=== PATIENT | male | born 1985 | race Caucasian/White ===

== ENCOUNTER 2023-02-08 05:20 | Day surgery (SDC) | payer MEDICAID ==
[2023-01-29 14:25] LABS: BASOPHILS # (AUTO) 0.1 X10'3 (0-0.2); BASOPHILS % (AUTO) 0.9 % (0-1); EOSINOPHILS # (AUTO) 0.3 X10'3 (0-0.9); EOSINOPHILS % (AUTO) 4.2 % (0-6); LYMPHOCYTES # (AUTO) 2.8 X10'3 (1.1-4.8); LYMPHOCYTES % (AUTO) 36.5 % (21-51); MEAN CORPUSCULAR HEMOGLOBIN 30.6 PG (27.0-31.0); MEAN CORPUSCULAR HGB CONC 34.3 g/dL (33.0-36.5); MEAN CORPUSCULAR VOLUME 89.3 FL (78-98); MEAN PLATELET VOLUME 7.5 FL (7.4-10.4); MONOCYTES # (AUTO) 0.8 X10'3 (0-0.9); MONOCYTES % (AUTO) 10.1 % (2-12); NEUTROPHILS # (AUTO) 3.7 X10'3 (1.8-7.7); NEUTROPHILS % (AUTO) 48.3 % (42-75); PRE OP HEMATOCRIT 46.5 % (42.0-52.0); PRE OP HEMOGLOBIN 15.9 g/dL (14.0-17.9); PRE OP PLATELET COUNT 235 X10'3 (140-440); PRE OP WHITE BLOOD COUNT 7.6 10'3 (4.8-10.8); RED CELL DISTRIBUTION WIDTH 13.2 % (11.5-14.5)
[2023-01-29 14:51] LABS: ALBUMIN 4.1 G/DL (3.4-5.0); ALBUMIN/GLOBULIN RATIO 1.1 (1.1-1.5); ALKALINE PHOSPHATASE 61 IU/L (46-116); BLOOD UREA NITROGEN 22 MG/DL (7-18); BUN/CREATININE RATIO 16.2 (10.0-20.0); CALCIUM 9.8 MG/DL (8.5-10.1); CHLORIDE 101 MMOL/L (99-107); CREATININE 1.36 MG/DL (0.60-1.10); PRE OP ANION GAP 9 (8-16); PRE OP AST 33 U/L (10-37); PRE OP BILIRUB, TOTAL 0.4 MG/DL (0.0-1.0); PRE OP POTASSIUM 4.2 MMOL/L (3.4-5.1); PRE OP SODIUM 136 MMOL/L (135-145); TOTAL PROTEIN 7.8 G/DL (6.4-8.2); eGFR 60 ML/MIN
[2023-01-29 14:53] LABS: PRE OP GLUCOSE 281 MG/DL (70-104)
[2023-01-29 16:44] LABS: HEMOGLOBIN A1C 7.5 % (4.5-6.2)
[2023-01-30 07:18] LABS: PRE OP ALT 81 U/L (30-65)
[2023-02-08] VITALS (8 sets, daily range): BP systolic 118–160; BP diastolic 69–92; PULSE 76–93; RESP 14–16; TEMP 98.4; O2SAT 95–98
[~2023-02-08] VITALS: Ht 175.3 cm; Wt 124.8 kg
[~2023-02-08 05:20] MED LIST: ACET-1025 PO; ASPI-1264 PO; IBUP-1984 PO; LYSI500T11 PO; METF-438 PO; MULT-1085 PO; OMEP20TA23 PO; SIMV-42 PO; ringers solution, lacted 1,000 ML IV SCH
[2023-02-08] MEDS ORDERED: ceFAZolin inj. 3,000 MG in normal saline 100ml IV soln 100 ML IV ONE (05:30)
[2023-02-08] MEDS ORDERED: famotidine 20mg tablet PO ONE (05:30)
[2023-02-08] MEDS ORDERED: BUPIVAcaine/PF 2.5 mg/ml (0.25%) 30ml vial IJ ONE (07:00)
[2023-02-08] MEDS ORDERED: cloNIDine hcl/PF 100mcg/ml inj ONE (07:19)
[2023-02-08] MEDS ORDERED: BUPIVAcaine/PF 2.5 mg/ml (0.25%) 30ml vial ONE (07:20)
[2023-02-08] MEDS ORDERED: fentaNYL/PF 50MCG/1 ML 2ML syringe ONE ×2 (07:22→07:54)
[2023-02-08] MEDS ORDERED: midazolam 1 mg/ML 2ml injection ONE (07:25)
[2023-02-08] MEDS ORDERED: sevoflurane 250ml liquid IH ONE (07:35)
[2023-02-08] MEDS ORDERED: morphine 2 MG/ML inj. syringe IV PRN (08:00)
[2023-02-08] MEDS ORDERED: morphine 4 MG/ML inj SYRINge IV PRN (08:00)
[2023-02-08] MEDS ORDERED: meperidine/PF 25mg/ml syringe IV PRN ×3 (08:00)
[2023-02-08] MEDS ORDERED: proCHLORperazine 10 MG/2 ml inj IV PRN (08:00)
[2023-02-08] MEDS ORDERED: ondansetron/PF 4mg/2ml inj IV PRN (08:00)
[2023-02-08] MEDS ORDERED: ringers solution, lacted 1,000 ML IV SCH (08:00)
[2023-02-08] MEDS ORDERED: insulin regular, human U-100 3ml vial - multi-dose ONE (08:22)
[2023-02-08] MEDS ORDERED: LIDOcaine 1%/PF 5ML 10 MG/ML VIAL ONE (08:42)
[2023-02-08] MEDS ORDERED: dexamethasone sod phosphate 4mg/ml inj. ONE (08:42)
[2023-02-08] MEDS ORDERED: ondansetron/PF 4mg/2ml inj ONE (08:42)
[2023-02-08] MEDS ORDERED: ROPIVAcaine 0.5% (5mg/ml) 30ml vial ONE (08:42)
[2023-02-08] MEDS ORDERED: propofol inj 20 ML IV ONE (08:42)
[2023-02-08] MEDS ORDERED: acetaminophen 1,000mg/100ml IV 100 ML IV ONE (08:43)
--- NOTE | 2023-02-08 09:00 | NUR ---
Received from OR via , accompanied by Anesthesiologist and report given by Anesthesiolgist. PATIENT A&OX4, DENIES PAIN, V/S WNL, SCD ON , PIV 20G RUE, SPLINT DRESSING TO LUE IN SLING WITH COLD POWDER PACK.
[2023-02-08] MEDS ORDERED: HYDROcodone/acetaminophen 10/325mg tab PO PRN (09:20)
--- NOTE | 2023-02-08 10:00 | NUR ---
A&OX4, DENIES PAIN, V/S WNL, SCD OFF , PIV 20G RUE D/C, SPLINT DRESSING TO LUE IN SLING WITH COLD POWDER PACK.DC HOME: ALL DISCHARGE CRITERIA HAS BEEN MET. VSS, PAIN AT TOLERABLE LEVEL. ABLE TO SAFELY AMBULATE AND TRANSFER SELF. IV TAKEN OUT WITHOUT ANY COMPLICATIONS. ALL DISCHARGE INSTRUCTIONS COVERED WITH PATIENT AND ALL QUESTIONS ANSWERED. PATIENT TAKEN OUT VIA WHEELCHAIR TO PERSONAL VEHICLE WHERE FAMILY/FRIEND DROVE PATIENT HOME.
== END 2023-02-08 10:00 | disposition home or self-care (01) ==
LOC: PAS 05:20
PROVIDERS: ATTEND Orthopaedic Surgery
DX: S46.212A Strain of muscle, fascia and tendon of other parts of biceps, left arm, initial encounter (principal); X58.XXXA Exposure to other specified factors, initial encounter; Y93.89 Activity, other specified; Y92.89 Other specified places as the place of occurrence of the external cause; Y99.8 Other external cause status; Z79.899 Other long term (current) drug therapy; Z98.890 Other specified postprocedural states; K21.9 Gastro-esophageal reflux disease without esophagitis; G89.18 Other acute postprocedural pain
CPT/HCPCS: 24342; 36415; 64415; 80053; 82948; 83036; 85025; C1713; J0131; J0690; J0735; J1100; J1815; J2250; J2405; J2704; J2795; J3010; J3490; J7030; J7120; Z7506; Z7508; Z7512; A4618; A6449; A7000